=== PATIENT | female | born 1965 | race Caucasian/White ===

== ENCOUNTER 2016-06-24 17:36 | Emergency (ER) | payer OTHER ==
[2016-06-24 17:51] VITALS: BP 162/103
[2016-06-24] MEDS ORDERED: LIDOCAINE HCL 20 ML VIAL ONE (18:54)
--- NOTE | 2016-06-24 19:34 | ERNOTE ---
Medical Problem HPI - Narrative Date of Service: 06/24/16 - General Chief Complaint: Laceration Time Seen by Provider: 06/24/16 18:53 Source: patient, family, RN notes reviewed Exam Limitations: no limitations - Immun/Allergies/Home Medications Allergies/Adverse Reactions: Allergies No Known Allergies Allergy (Verified 06/24/16 17:50) Home Medications: HOME MEDICATIONS Levothyroxine Sodium [Synthroid] 88 mcg PO DAILY 10/07/13 [Last Taken Unknown] - History of Present History Narrative: 50 y/o female ambulatory to the ED for a laceration to the left ring finger. She cut herself on a piece of glass from a broken dish while washing dishes at home just [employer]. Review of Systems - Review of Systems Constitutional: Present: no symptoms reported EYE: Present: no symptoms reported ENT: Present: no symptoms reported Respiratory: Present: no symptoms reported Cardiology: Present: no symptoms reported Gastrointestinal/Abdominal: Present: no symptoms reported Genitourinary: Present: no symptoms reported Musculoskeletal: Absent: joint pain, joint swelling Skin: Absent: lesions, lumps, change in color Neurological: Absent: weakness, numbness, tingling Endocrine: Present: no symptoms reported Hematologic/Lymphatic: Absent: easy bruising, easy bleeding Psych: Present: no symptoms reported - Patient's Past Medical History Patient History - Medical: Hypothyroidism Patient History - Cardiac/Respiratory: No pertinent hx Patient History - Cancer: No Hx of Cancer Patient History - Surgical Procedures: No surgical history Patient History - Other: None - Social History Living Situations: home Psych History: No pertinent hx Alcohol Use: none Drug Use: none Physical Exam - Physical Exam General Appearance: Present: wd/wn, alert, no apparent distress Respiratory: Present: no respiratory distress, no accessory muscle use Cardiovascular/Chest: Present: normal peripheral pulses Peripheral Pulses: N=norm/S=strong/W=weak/B=bound/A=absent: Radial (R): Strong Extremity Exam: Present: normal except - - right ring finger laceration, normal range of motion, no edema Neurological Exam: Present: alert, oriented, normal mood/affect, no motor/ sensory deficits Skin Exam: Present: normal color, warm/dry ED Progress - Vital Signs Patient's Vital Signs:: I have reviewed the patient's vital signs. Vital Signs: Vital Signs 06/24/16 17:45 Temperature 37.3 C Pulse Rate 88 Respiratory 12 Rate Blood Pressure 162/103 O2 Sat by Pulse 97 Oximetry - Progress/Reassessment Chief Complaint: Laceration Progress:: Improved Procedures Left Proximal Volar Finger 4th Digit Anesthesia: 1% Lidocaine Length of Repair/Wound (cm): 1.5 Wound's Depth/Shape: into subcutaneous, linear Wound Explored: clean, to base, in bloodless field, no foreign body Wound Intervention: irrigated w/saline Distal NVT: neuro/vasc intact, no tendon injury Wound Repaired With: sutures Suture Size/Type: 5-0, nylon Number of Sutures: 3 Layer Closure: Simple Wound Dressing: sterile dressing applied Complications: Pt jo procedure well Departure - Departure Clinical Impression: Laceration of finger of left hand Qualifiers: Encounter type: initial encounter Qualified Code(s): S61.219A - Laceration without foreign body of unspecified finger without damage to nail, initial encounter Disposition: Home Follow Up Needed Condition: Good Instructions: Sutured Wound Care, [id number] Additional Instructions: Keep dressing in place and dry for 48 hours OK to then wash wound gently with soap and water but do not soak Apply antibiotic ointment and bandage as needed Have sutures removed in 7 days Referrals: Mark Campa MD [Primary Care Provider] -
== END 2016-06-24 19:25 | disposition home or self-care (01) ==
LOC: ER 17:36
PROC: 0JQK0ZZ Repair Left Hand Subcutaneous Tissue and Fascia, Open Approach (ICD-10-PCS; principal; 2016-06-24)
DX: S61.215A Laceration without foreign body of left ring finger without damage to nail, initial encounter (principal); W25.XXXA Contact with sharp glass, initial encounter; Y93.G1 Activity, food preparation and clean up; Y92.009 Unspecified place in unspecified non-institutional (private) residence as the place of occurrence of the external cause; E03.9 Hypothyroidism, unspecified